=== PATIENT | male | born 1945 | race Caucasian/White ===

== ENCOUNTER → 2023-12-11 10:33 | Outpatient (REF) | payer OTHER, SELFPAY ==
[2023-12-11 11:16] LABS: % Basophils 0.7 % (0-2); % Immature Granulocytes 0.7 % (0-0.5); % Lymphocytes 32.8 % (20.5-51.1); % Monocytes 6.3 % (1.7-9.3); % Neutrophils 55.5 % (42.2-75.2); Absolute Basophils 0.1 10^3/uL (0-0.2); Absolute Eosinophils 0.3 10^3/uL (0-0.7); Absolute Immature Granulocytes 0.1 10^3/uL (0-0.05); Absolute Lymphocytes 2.4 10^3/uL (1.2-3.4); Absolute Monocytes 0.5 10^3/uL (0.1-0.6); Hematocrit 46.7 % (39.0-52.0); Hemoglobin 15.8 g/dL (13.0-18.0); Mean Corp Hgb Conc. 33.8 g/dL (33.0-37.0); Mean Corpuscular Hgb 30.3 pg (27.0-31.0); Mean Corpuscular Volume 89.6 fL (80.0-94.0); Mean Platelet Volume 11.9 fL (7.4-10.4); Nucleated Red Blood Cells % 0 % (-); Platelet Count 200 10^3/uL (130-400); Red Blood Cell Count 5.21 10^6/uL (4.70-6.10); Red Cell Dist. Width 13.8 % (11.5-14.5); White Blood Cell Count 7.3 10^3/uL (4.8-10.8)
[2023-12-11 12:24] LABS: ALT (SGPT) 29 U/L (0-50); AST (SGOT) 30 U/L (17-59); Albumin 4.5 g/dl (3.5-5.0); Alkaline Phosphatase 78 U/L (38-126); Blood Urea Nitrogen 19 mg/dl (9-20); Calcium 11.7 mg/dl (8.4-10.2); Carbon Dioxide 23 mmol/L (22-30); Chloride 104 mmol/L (98-107); Glucose 147 mg/dl (70-99); Potassium 4.2 mmol/L (3.5-5.1); Sodium 141 mmol/L (135-145); Total Bilirubin 1.2 mg/dl (0.2-1.3); Total Protein 6.7 g/dl (6.3-8.2); Uric Acid 4.9 mg/dl (3.5-8.5); eGFR > 60.00
== END ==
LOC: REG 10:33
PROVIDERS: ATTENDING PHYSICIAN Internal Medicine Rheumatology; FAMILY PHYSICIAN Family Medicine
DX: M1A.0790 Idiopathic chronic gout, unspecified ankle and foot, without tophus (tophi) (principal)
CPT/HCPCS: 36415; 80053; 84550; 85025

== ENCOUNTER → 2024-05-22 08:14 | Outpatient (REF) | payer OTHER, SELFPAY | LOC: MRI 3T 08:14 | PROVIDERS: ATTENDING PHYSICIAN Specialist; FAMILY PHYSICIAN Physician Assistant Medical | DX: R97.20 Elevated prostate specific antigen [PSA] (principal) | CPT/HCPCS: 72197; A9575 ==

== ENCOUNTER 2024-08-28 05:58 | Day surgery (SDC) | payer OTHER, SELFPAY ==
[2024-08-14 09:13] LABS: Hematocrit 46.2 % (39.0-52.0); Hemoglobin 15.3 g/dL (13.0-18.0); Mean Corp Hgb Conc. 33.1 g/dL (33.0-37.0); Mean Corpuscular Hgb 30.5 pg (27.0-31.0); Mean Platelet Volume 11.8 fL (7.4-10.4); Platelet Count 171 10^3/uL (130-400); Red Blood Cell Count 5.02 10^6/uL (4.70-6.10); Red Cell Dist. Width 13.8 % (11.5-14.5); White Blood Cell Count 7.3 10^3/uL (4.8-10.8)
[2024-08-14 09:28] LABS: Blood Urea Nitrogen 22 mg/dl (9-20); Carbon Dioxide 26 mmol/L (22-30); Chloride 111 mmol/L (98-107); Glucose 113 mg/dl (70-99); Potassium 5.1 mmol/L (3.5-5.1); Sodium 142 mmol/L (135-145); eGFR > 60.00
[2024-08-14 13:42] VITALS: BMI 29.4
[2024-08-28] VITALS (10 sets, daily range): BP systolic 110–166; BP diastolic 54–84; BMI 29.4
--- NOTE | 2024-08-28 06:10 | PTCARENOTE ---
Patient very angry that he was brought in at 0545 and that no one was at the desk to check him in. Patient then brought back to his bed with another patient and the RN stopped at the other patients bed first to give them instruction and patient
stated that he was disrespected and it was rude to a senior citizen. Patient given warm blankets and reassured that RN would be in shortly to admit him. Will monitor patient.
[2024-08-28] MEDS: NEOMYCIN ENEMA 1 BOTTLE RECTAL (06:43)
[2024-08-28] MEDS: NORMOSOL-R/PLASMALYTE-A 1000 IV ×2 (07:30→17:09)
[2024-08-28] MEDS: COLACE PO ×2 (16:58)
[2024-08-28] MEDS: CRESTOR PO (17:07)
[2024-08-28] MEDS: ZYLOPRIM PO (17:07)
[2024-08-28] MEDS: TORADOL IV ×2 (17:20→21:19)
[2024-08-28] MEDS: COLACE 100 MG PO (17:20)
[2024-08-28] MEDS: POLYSPORIN OINTMENT TOPICAL (17:34)
--- NOTE | 2024-08-28 17:42 | DOWNTIME ---
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 Downtime documentation of patient's care, including medication administrations, has been reconciled in the electronic record per guidelines. Refer to the
patient's paper chart under the miscellaneous tab to see printed paper medication records and downtime forms.
[2024-08-28] MEDS: POLYSPORIN OINTMENT 1 APPLIC TOPICAL (21:10)
[2024-08-29 03:02] VITALS: BP 145/76
[2024-08-29] MEDS: TORADOL IV (03:41)
[2024-08-29] MEDS: NORMOSOL-R/PLASMALYTE-A 1000 IV (04:07)
[2024-08-29 07:30] VITALS: BP 142/70
--- NOTE | 2024-08-29 08:35 | W.PN.URO.CBU ---
Today's Communication / Plan
-
discharge
Assessment / Plan
-
stable
Diagnosis
-
Date of Service: August 29, 2024
-
Patient Diagnosis:
Prostate cancer
Bladder stones
s/p robotic radical prostatectomy, Right PLND, Litholapaxy
Post Op Day: 1
Subjective
-
'no pain'
Objective
-
Vital Signs
Temp Pulse Resp BP Pulse Ox
98.9 F 97 18 142/70 95
08/29/24 07:30 08/29/24 07:30 08/29/24 07:30 08/29/24 07:30 08/29/24 07:30
Intake and Output
08/28/24 08/29/24 08/30/24
06:59 06:59 06:59
Intake Total 1420 / 1420
Output Total 1600 / 1600
Balance -180 / -180
Intake:
Oral fluids 120 / 120
IV fluids (Total) 1050 / 1050
Fox intermittent irrigation 250 / 250
Output:
Urine, Fox 1600 / 1600
Physical Exam
-
General - well developed, well nourished, no acute distress
Chest - clear bilaterally
Abdomen - soft, no distention
Genitalia - Fox: vianey urine
Skin - warm & dry with no rash
Neuro - AOx3, no motor deficits
Extremities - no clubbing, no cyanosis, no edema
Dressings - clean, dry, intact
[2024-08-29 08:38] LABS: Hematocrit 40.8 % (39.0-52.0); Hemoglobin 13.9 g/dL (13.0-18.0); Mean Corp Hgb Conc. 34.1 g/dL (33.0-37.0); Mean Corpuscular Hgb 31.3 pg (27.0-31.0); Mean Corpuscular Volume 91.9 fL (80.0-94.0); Mean Platelet Volume 12.1 fL (7.4-10.4); Platelet Count 166 10^3/uL (130-400); Red Blood Cell Count 4.44 10^6/uL (4.70-6.10); Red Cell Dist. Width 13.7 % (11.5-14.5); White Blood Cell Count 17.6 10^3/uL (4.8-10.8)
[2024-08-29] MEDS: ZYLOPRIM 300 MG PO (09:05)
[2024-08-29] MEDS: CRESTOR 10 MG PO (09:05)
[2024-08-29] MEDS: COLACE 100 MG PO (09:05)
[2024-08-29] MEDS: POLYSPORIN OINTMENT 1 APPLIC TOPICAL (09:07)
[2024-08-29] MEDS: ZESTRIL 20 MG PO (09:09)
[2024-08-29] MEDS: NORVASC 5 MG PO (09:10)
[2024-08-29] MEDS: TORADOL 15 MG IV (09:17)
[2024-08-29 09:44] LABS: Blood Urea Nitrogen 20 mg/dl (9-20); Calcium 10.1 mg/dl (8.4-10.2); Carbon Dioxide 27 mmol/L (22-30); Chloride 106 mmol/L (98-107); Estimated Creatinine Clearance 59 ml/min; Glucose 110 mg/dl (70-99); Potassium 4.8 mmol/L (3.5-5.1); Sodium 140 mmol/L (135-145); eGFR > 60.00
--- NOTE | 2024-08-29 11:16 | CM ---
Initial assessment completed with patient who lives with his in a 2 story home with basement, B/B on 1st and 2nd floors, 2 steps to enter. 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 Support
system is , sister who is a FAMILY NURSE and 2 sons, 1 in the area. Discharge POC: Home with [facility] RN services.
--- NOTE | 2024-08-29 11:22 | CM ---
Patient has been medically cleared for discharge to [facility]. will transport home.
[2024-08-29 12:22] VITALS: BP 139/64
[2024-08-29] MEDS: COLACE PO (12:47)
== END 2024-08-29 12:49 | disposition home or self-care (01) ==
LOC: SDS 05:58
PROVIDERS: ATTENDING PHYSICIAN Specialist; FAMILY PHYSICIAN Physician Assistant Medical
DX: C61 Malignant neoplasm of prostate (principal); N21.0 Calculus in bladder
CPT/HCPCS: 55866; 88307; 88309; 36415; 80048; 85027; 86850; 86900; 86901; 87070; 93005

== ENCOUNTER 2024-09-05 22:07 | Emergency (ER) | payer OTHER, SELFPAY ==
[2024-09-05 22:11] VITALS: BP 173/82
[2024-09-05 22:30] LABS: Urine Albumin 3+ (Neg - Trace); Urine Bilirubin Negative (Negative); Urine Character Slightly Cloudy (Clear); Urine Color Red; Urine Glucose Negative (Negative); Urine Ketone Negative (Negative); Urine Leukocyte 3+ (Negative); Urine Nitrite Negative (Negative); Urine Occult Blood 4+ (Negative); Urine Urobilinogen 1+ (Neg - 1+)
[2024-09-05 22:37] LABS: Urine Squamous Cell 0-2 /LPF (Few)
[2024-09-05 22:38] LABS: Urine Red Blood Cell >100 /HPF (0-2)
[2024-09-05 22:39] LABS: Urine Bacteria Few (Negative)
[2024-09-06 00:29] VITALS: BP 148/62
[2024-09-06 02:05] VITALS: BP 151/69
--- NOTE | 2024-09-06 02:05 | ED.GENMED ---
History of Present Illness
General
Chief Complaint: Catheter/Tube Problem
Source: patient
Exam Limitations: none
Time Seen by Provider: 09/06/24 00:07
Nursing documentation reviewed up to this point in time: agreed with
History of Present Illness
History of Present Illness:
pt is a 79 y/o M
h/o prostate CA s/p radical prostatectomy on 08/[address] dey
here with hematuria
says that he was told that a home health RN would irrigate his whitehead but when they came they didn't irrigate it
he started having painless blood in his urine today and thought he should come have it irrigated
he has no pain and has no clots and it has been draining
he has no fever/dysuria/systemic symptoms
no AC
has appt with rodolfo today
Past History
Past History
ED Past Medical History: HTN and Other (gout)
ED Past Surgical History: Tonsilectomy and Urological (Kidney stone removal, TURP)
Patient has exhibited threatening behavior?: No
Social History
Tobacco: Non-smoker
Alcohol: Occasional
Personal:
Living: with family
Employment: Retired
Family History
Family History: Other (Noncontributory)
Review of Systems
Review of Systems
Allergies reviewed?: Yes
All Other Systems: Not applicable
Phy Exam
Physical Exam
Physical Exam:
GENERAL: Alert , in no apparent distress
CARDIAC: Regular rate and rhythm .
LUNGS: Clear breath sounds bilaterally, no acute respiratory distress, no wheezes/rales/rhonchi
ABDOMEN: Soft, without focal tenderness, no r/g, no cvat, normal bowel sounds
Gu; NORMAL INSPECTIOn
whitehead in place
draining yellow urine
the bag has translucent tea colored urine
no clots
no bladder distension
NEUROLOGICAL: Alert and oriented, no focal neuro deficits
SKIN: Warm and dry, skin intact.
PSYCH: Normal and appropriate interaction.
Course
Orders/Labs/Results
Orders:
Orders
09/05/24 22:19
Urinalysis Reflex To Culture Urgent
Date Specimen was Collected: 09/05/24
Time Specimen was Collected: 22:17
Urine Microscopic Reflex Cult Urgent
Urine Culture Urgent
CANDIE Source: U
Specimen Description:
Date Specimen was Collected: 09/05/24
Time Specimen was Collected: 22:17
Abnormal Lab Results
09/05/24
22:19
Ur Occult Blood Reflex 4+ A
(Negative)
Leukocyte Esterase Rfl 3+ A
(Negative)
Urine RBC >100 A /HPF
(0-2)
Urine Bacteria (Reflex) Few A
(Negative)
Urine Albumin (Reflex) 3+ A
(Neg - Trace)
Vital Signs
Initial and Last Documented VS:
Initial Vital Signs
Temp Pulse Resp BP Pulse Ox
36.6 C 62 18 173/82 99
09/05/24 22:11 09/05/24 22:11 09/05/24 22:11 09/05/24 22:11 09/05/24 22:11
Last Documented Vital Signs
Temp Pulse Resp BP Pulse Ox
36.7 C 62 20 151/69 97
09/06/24 02:05 09/06/24 02:05 09/06/24 02:05 09/06/24 02:05 09/06/24 02:05
MDM/Problems Addressed
Differential Diagnosis Includes:
uti, hematuria post op
MDM/Problems Addressed:
79 y/o M
s/p prostatectomy last week
new heamturia today
says he had home visitng nursing come a few days ago but they didn't irrigate the whitehead; he was undere the impression it should be irrigated
he has not done it himself
today he had painless hematuria
no clots
draining well
no systemic syptos
actually has f/u wiht urologist tomrrow
well appearing
nontender
urine is clear now; what's in the bag is ice tea colored
ua appreciated, mostly bloody
i did irrigate the whitehead just briefly with small volume because pt requested
d/c home
*Critical Care Note
Total Time (30-74mins, 75-104mins- exclusive of procedures): Not Applicable
ED Attending Note
-
Portions of this chart may have been created with voice recognition software.� Occasional wrong word or��sound alike� substitutions may have occurred due to the inherent limitations of voice recognition software.
Discharge Plan
Departure
Patient Disposition: Home (Routine Discharge)
Date of Disposition: 09/06/24
Time of Disposition: 02:09
Patient with high blood pressure during this ER visit?: Yes
Condition: Fair
Covid-19: Not Applicable
Discharge Problem:
Hematuria
Instructions: How to Care for Your Whitehead Catheter, Male, Blood in the urine (hematuria) - ED discharge instructions, BLOOD PRESSURE
Prescriptions:
No Action
allopurinol 300 MG tablet
300 mg PO DAILY
amlodipine-benazepril 5-20 mg Capsule
1 cap PO DAILY
rosuvastatin 10 mg Tablet
10 mg PO DAILY
naproxen sodium [Aleve] 220 mg capsule
440 mg PO BID PRN (Reason: Pain) Qty: 1 0RF
tramadol 50 mg tablet
50 mg PO TID PRN (Reason: severe Pain) Qty: 10 0RF
Referrals:
Enzo Ball PA-C [Family Provider, Family Practice]
Activity Restrictions/Additional Instructions:
Your urine had some blood in it but your Whitehead is draining properly. I irrigated slightly and it is clear. Follow-up with Dr. Dey later today as planned. Return for any pain, fever, chills, clot, inability for your Whitehead to drain or any
concern
Interventions
Interventions:
*Risk Screen - Suicide Last Done: 09/05/24 22:11
*General Assessment Last Done: 09/05/24 22:11
*Neglect/Abuse Screening Last Done: 09/05/24 23:39
*ED- Fall Risk Assessment Last Done: 09/05/24 23:39
*Nursing Disposition Last Done: 09/06/24 02:18
AW-Xnoyxu-[id number] Assessment Last Done: 09/05/24 23:39
ED-Male Genitourinary Assessment Last Done: 09/05/24 23:39
Discharge Date and Time
Discharge Date/Time: 09/06/24 02:18
Print Language: [place]
== END 2024-09-06 02:18 | disposition home or self-care (01) ==
LOC: EMR 22:07
PROVIDERS: Emergency Medicine; EMERGENCY PHYSICIAN Emergency Medicine; FAMILY PHYSICIAN Physician Assistant Medical
DX: R31.9 Hematuria, unspecified (principal); I10 Essential (primary) hypertension
CPT/HCPCS: 99282; 81003; 81015; 87086

== ENCOUNTER 2024-11-29 06:23 | Outpatient (RCR) | payer OTHER, SELFPAY | END 2024-11-29 23:59 | disposition home or self-care (01) | LOC: RPT 06:23 | PROVIDERS: ATTENDING PHYSICIAN Specialist; FAMILY PHYSICIAN Physician Assistant Medical | DX: C61 Malignant neoplasm of prostate (principal); M62.89 Other specified disorders of muscle; N39.3 Stress incontinence (female) (male); Z73.6 Limitation of activities due to disability; Z98.890 Other specified postprocedural states; Z90.79 Acquired absence of other genital organ(s) | CPT/HCPCS: 97110; 97112; 97140; 97162; 97530 ==

== ENCOUNTER 2024-12-13 09:23 | Outpatient (RCR) | payer OTHER, SELFPAY | END 2024-12-13 23:59 | disposition home or self-care (01) | LOC: RPT 09:23 | PROVIDERS: ATTENDING PHYSICIAN Specialist; FAMILY PHYSICIAN Physician Assistant Medical | DX: C61 Malignant neoplasm of prostate (principal); M62.89 Other specified disorders of muscle; N39.3 Stress incontinence (female) (male); Z73.6 Limitation of activities due to disability; Z98.890 Other specified postprocedural states; Z90.79 Acquired absence of other genital organ(s) | CPT/HCPCS: 97110; 97140; 97530 ==

== ENCOUNTER 2025-01-30 06:59 | Outpatient (RCR) | payer OTHER, SELFPAY | END 2025-01-30 23:59 | disposition home or self-care (01) | LOC: RPT 06:59 | PROVIDERS: ATTENDING PHYSICIAN Specialist; FAMILY PHYSICIAN Physician Assistant Medical | DX: C61 Malignant neoplasm of prostate (principal); M62.89 Other specified disorders of muscle; N39.3 Stress incontinence (female) (male); Z73.6 Limitation of activities due to disability; Z98.890 Other specified postprocedural states; Z90.79 Acquired absence of other genital organ(s) | CPT/HCPCS: 97110; 97112; 97140 ==

== ENCOUNTER 2025-02-28 06:43 | Outpatient (RCR) | payer OTHER, SELFPAY | END 2025-02-28 23:59 | disposition home or self-care (01) | LOC: RPT 06:43 | PROVIDERS: ATTENDING PHYSICIAN Specialist; FAMILY PHYSICIAN Physician Assistant Medical | DX: C61 Malignant neoplasm of prostate (principal); M62.89 Other specified disorders of muscle; N39.3 Stress incontinence (female) (male); Z73.6 Limitation of activities due to disability; Z98.890 Other specified postprocedural states; Z90.79 Acquired absence of other genital organ(s) | CPT/HCPCS: 97110; 97112; 97140; 97530 ==

== ENCOUNTER 2025-03-18 07:01 | Outpatient (RCR) | payer OTHER, SELFPAY | END 2025-03-18 13:00 | disposition home or self-care (01) | LOC: RPT 07:01 | PROVIDERS: ATTENDING PHYSICIAN Specialist; FAMILY PHYSICIAN Physician Assistant Medical | DX: C61 Malignant neoplasm of prostate (principal); M62.89 Other specified disorders of muscle; N39.3 Stress incontinence (female) (male); Z73.6 Limitation of activities due to disability; Z98.890 Other specified postprocedural states; Z90.79 Acquired absence of other genital organ(s) | CPT/HCPCS: 97110; 97112; 97140; 97530 ==